=== PATIENT | female | born 2000 | race Caucasian/White ===

== ENCOUNTER 2021-02-18 19:53 | Emergency (ER) | payer OTHER ==
[2021-02-18] MEDS ORDERED: NORCO 5-325 TA1 EACH PO ×2 (21:29→23:08)
[2021-02-18] MEDS ORDERED: BACITRACIN15 GM TOP ×2 (21:29→23:08)
== END 2021-02-18 22:02 | disposition home or self-care (01) ==
LOC: FER 19:53
DX: T22.211A Burn of second degree of right forearm, initial encounter (principal); T31.0 Burns involving less than 10% of body surface; F17.200 Nicotine dependence, unspecified, uncomplicated; X10.0XXA Contact with hot drinks, initial encounter; Y92.009 Unspecified place in unspecified non-institutional (private) residence as the place of occurrence of the external cause
CPT/HCPCS: 96374; 96375; J2270; J2405